=== PATIENT | female | born 1990 | race Caucasian/White ===

== ENCOUNTER 2019-11-10 14:50 | Emergency (ER) | payer OTHER, SELFPAY ==
[2019-11-10 15:05] VITALS: BP 106/55; PULSE 118; RESP 20; TEMP 39.4; O2SAT 100
--- NOTE | 2019-11-10 15:09 | ED.GENADULT ---
HPI - General Adult General Chief complaint: Fever Stated complaint: body aches/fever Time Seen by Provider: 11/10/19 15:10 Source: patient and RN notes reviewed Mode of arrival: ambulatory Limitations: no limitations History of Present Illness HPI narrative: This is a 29 years old female presents to the office for an evaluation of fever for five days. Associated with generalize bodyache with decrease appetite. 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 Denies sick contact. Related Data Home Medications Medication Instructions Recorded Confirmed No Home Medications 11/10/19 11/10/19 Allergies Allergy/AdvReac Type Severity Reaction Status Date / Time No Known Allergies Allergy Unknown Verified 11/10/19 15:52 Review of Systems Review of Systems: Narrative: CONSTITUTIONAL: Reports fever, chills and bodyache ENT: Denies congestion, sore throat, otalgia. CARDIOVASCULAR: Denies chest pain RESPIRATORY: Denies dyspnea, wheezing, cough GASTROINTESTINAL: Denies nausea, vomiting, diarrhea. Reports no appetite and generalize upset stomache GENITOURINARY: Denies urinary symptoms SKIN: Denies rash MUSCULOSKELETAL: Denies acute back pain. Reports malygia NEUROLOGIC: Denies lightheaded PMFSH Social History Social History Smoking status: Current every day smoker Comments At time of signature, I agree with nursing past medical, surgical, social and family history. There is no relevant family history pertinent to the presenting complaint. Exam Narrative: Exam Narrative: GENERAL: This is a well-nourished, well-developed patient, ill apparent, but not in acute distress. EYES: Sclera clear/white. Vision is grossly intact. EARS: External ears normal, auditory canals clear and without drainage, TMs normal without perforation. Hearing grossly intact. NOSE: External nose normal with no obvious nasal discharge, nares without redness, no rhinorrhea. THROAT: Mucous membranes moist, posterior pharynx clear. NECK: Neck supple, non-tender without lymphadenopathy, masses or thyromegaly. CARDIOVASCULAR: Regular rate and rhythm without murmurs, gallops, or rubs. RESPIRATORY: Clear to auscultation. Breath sounds equal bilaterally. No wheezes, rales, or rhonchi. GASTROINTESTINAL: Abdomen soft, non-tender, nondistended. Bowel sounds are active. No hepato-splenomegaly, or palpable masses. No guarding. SKIN: warm, intact with no suspicious lesions or rash, good texture and turgor. NEURO: awake, alert, and oriented to person, place and time. There were no obvious focal neurologic abnormalities. Steady gait [place] Coma Scale Eye Opening: Spontaneous 4 [place] Coma Scale Motor: Obeys Commands 6 [place] Coma Scale Verbal: Oriented 5 Course Vital Signs Vital signs: Vital Signs Temperature 102.9 F H 11/10/19 15:05 Pulse Rate 118 H 11/10/19 15:05 Respiratory Rate 20 11/10/19 15:05 Blood Pressure 106/55 L 11/10/19 15:05 Pulse Oximetry 100 11/10/19 15:05 Temperature 102.9 F H 11/10/19 15:05 Pulse Rate 118 H 11/10/19 15:05 Respiratory Rate 20 11/10/19 15:05 Blood Pressure 106/55 L 11/10/19 15:05 Pulse Oximetry 100 11/10/19 15:05 Medical Decision Making MDM Narrative Medical decision making narrative: Her influenza test is negative; COVID testing is ordered Discharge instructions reviewed with patient, as well as provided in writing per nursing staff. The instructions also include specific and strict return/GO TO THE ER as well as f/u information. All questions have been answered, and the patient deny any further questions with discharge and discharge plan. Differential Diagnosis Differential Diagnosis: pneumonia, Allergic Rhinitis, Upper respiratory cough syndrome, Pharyngitis, Sinusitis, Bronchitis, otitis media, viral URI, Asthma/reactive airway disease, influenza Vital Signs Vital Signs: Vital Signs Temperature 102.9 F H 11/10/19 15:05 Pulse
== END 2019-11-10 15:35 | disposition home or self-care (01) ==
PROVIDERS: Emergency Provider Nurse Practitioner; PCP Nurse Practitioner Family
DX: R50.9 Fever, unspecified (principal); F17.290 Nicotine dependence, other tobacco product, uncomplicated; Z20.828 Contact with and (suspected) exposure to other viral communicable diseases
CPT/HCPCS: 87804; 99213; G0463

== ENCOUNTER 2020-02-16 17:30 | Emergency (ER) | payer OTHER, SELFPAY ==
[2020-02-16 17:36] VITALS: BP 104/63; PULSE 84; RESP 22; TEMP 37.1; O2SAT 100
--- NOTE | 2020-02-16 18:08 | ED.SKABFB ---
HPI - Skin/Abscess/Foreign Bdy General Chief complaint: Skin/Abscess/Foreign Body Stated complaint: rash on legs and arms Time Seen by Provider: 02/16/20 18:18 Source: patient Mode of arrival: ambulatory Limitations: no limitations History of Present Illness HPI narrative: Patient was hiking last week and broke out with a rash to both of her legs 2 days ago. No shortness of breath no chest pain. Patient states is itchy rash and she has been placed seen hydrocortisone cream and IV dry to the area. MD complaint: rash Location: LLE and RLE (Both lower extremities) Severity: mild Related Data Allergies Allergy/AdvReac Type Severity Reaction Status Date / Time No Known Allergies Allergy Unknown Verified 02/16/20 18:10 Review of Systems Review of Systems: Narrative: CONSTITUTIONAL: Denies fever, chills, or sweats. EYES: Denies visual changes, redness, or discharge. ENT: Denies rhinorrhea, congestion, sore throat, or otalgia. CARDIOVASCULAR: Denies chest pain, palpitations, or edema. RESPIRATORY: Denies cough or dyspnea. GASTROINTESTINAL: Denies abdominal pain, nausea, vomiting, or diarrhea. GENITOURINARY: Denies dysuria or hematuria. SKIN: Rash to both lower extremities started 2 days ago. MUSCULOSKELETAL: Denies back pain, joint pain, or myalgia. NEUROLOGIC: Denies headache, numbness, or weakness. PSYCHIATRIC: Denies anxiety or depression. PMFSH Social History Social History Smoking status: Current every day smoker Comments At time of signature, agree with nursing past medical, surgical, social and family history. There is no relevant family history pertinent to the presenting complaint Exam Narrative: Exam Narrative: GENERAL: Well-appearing, well-nourished, and in no acute distress. HEAD: Normocephalic, atraumatic. EYES: PERRLA and EOMI. ENT: Nares clear, no rhinorrhea or epistaxis. Mucous membranes moist. NECK: Supple. CHEST: Clear to auscultation. No respiratory distress. HEART: Regular rate and rhythm. No murmur heard. Normal peripheral pulses. ABDOMEN: Soft, nontender, nondistended, normal active bowel sounds. EXTREMITIES: Normal range of motion. No edema. SKIN: Warm, dry, no rash.RASH CONSISTENT WITH RHUS DERMATITIS. LINEAR QUINTANA WITH WET LIKE APPEARS ON NEW AREAS. DIFFERENT STAGES PRESENT. REDNESS TO LESIONS. NO SIGNS OF INFECTION OR CELLULITIS/ABSCESS. NO VESICLES. NO ULCERATIONS. NO RAISED URTICARIAL LESIONS. NO LESIONS ALONG THE WAISTBAND OR IN WEB SPACES. NO BURROWS. NO PETECHIAE. To both lower extremities NEURO: No focal deficits. Alert and oriented x3. [place] Coma Scale Eye Opening: Spontaneous 4 [place] Coma Scale Motor: Obeys Commands 6 [place] Coma Scale Verbal: Oriented 5 [place] Coma Scale Total 15 Course Vital Signs Vital signs: Vital Signs Temperature 37.1 C 02/16/20 17:36 Pulse Rate 84 02/16/20 17:36 Respiratory Rate 22 H 02/16/20 17:36 Blood Pressure 104/63 02/16/20 17:36 Pulse Oximetry 100 02/16/20 17:36 Temperature 37.1 C 02/16/20 17:36 Pulse Rate 84 02/16/20 17:36 Respiratory Rate 22 H 02/16/20 17:36 Blood Pressure 104/63 02/16/20 17:36 Pulse Oximetry 100 02/16/20 17:36 MDM - Skin/Abscess/Foreign Bdy Differential Diagnosis Differential diagnosis: Likely viral exanthem, urticaria, cellulitis, eczema, impetigo and contact dermatitis Critical Care Time Critical Care Time Critical Care Time: No Discharge Plan Discharge Clinical Impression: Contact dermatitis, Poison negra dermatitis Patient Disposition: Home, Self-Care Condition: Stable Instructions: Antibiotic Form, Poison Negra (ED) Additional Instructions: Poisonivy 1. Please be aware that the oil from the plant is what causes the skin irritation, it will continue to spread as long as the oils are present. Please wash all clothing, bedding, equipment that came into contact with the plant to prevent further spreading. Animal fur
== END 2020-02-16 18:27 | disposition home or self-care (01) ==
PROVIDERS: Emergency Provider Nurse Practitioner Family
DX: L25.5 Unspecified contact dermatitis due to plants, except food (principal); F17.200 Nicotine dependence, unspecified, uncomplicated
CPT/HCPCS: 99213; G0463

== ENCOUNTER 2024-12-31 18:17 | Emergency (ER) | payer OTHER, SELFPAY ==
--- OUTSIDE RECORDS SUMMARY | 2024-12-31 18:19 | XMS_ITS | Continuity of Care Document ---
Author Organization formerly [facility] Address [address] [place] [address] Phone Care Team Providers Care Worship Director Name Role Phone Michael Cardenas MD Unavailable Unavailable Procedures Procedure Date Eye Exam, New Patient Advance Directives Directive Yes / No Effective Date File Name No Information Encounters Encounter Description Practice Location Reason(s) For Visit Diagnoses Date Provider Providers Copied on Encounter [facility], [address], [place], [place], [id number], [place] tel:[phone] [address] [place] Professional No Information 0-200 9 Theresa Rodriguez. [address] [facility] [address], [place], [place], [id number], [place]. tel:[phone] Family History Family Member Type Diagnosis Age At Onset No Information Payers Payer name Insurance type Covered alliance party ID Authorancaa umair(s) [facility] Commercial CI [id number] Social History Type Description Quantity Date Captured Comments Sex Female Smoking Status No Information Chief Complaint And Reason For Visit No Information Reason For Referral Reason For Referral No Information History Of Present Illness Encounter Date Complaint History Of Prese nt Illness No Information Functional Status Date Functional Assessmen t No Information Instructions Date Instruction Additional Infor mation No Information Assessments Type Assessment Date No Information Patient Care Teams Name Effective Dates (start - stop) Status Members No Information
--- OUTSIDE RECORDS SUMMARY | 2024-12-31 18:19 | XMS_ITS | Encounter Summary ---
Author Organization [facility] Address [address] [place] [address] Care Team Providers Care Kiln Worker Name Role Phone NicaFilibertoNeldanessa Botello NP Primary Care Provider + [phone] Encounter Details Date Type Department Care Team (Late st Contact Info) Description 12/31/2024 Patient Self-Triage [facility]/ Physicians [facility] [place] [address] Mychart, Generic Provider [address] [place] [address] Social History Tobacco Use Types Packs/Day Years Used Date Smoking Tobacco: Former Cigarettes 1.5 8 2 013 2020 Comments:Smoking History Pac ks/day: 5 Cigarettes Alcohol Use Standard Drinks/Week Comments Yes 0 (1 standard drink = 0.6 oz pur e alcohol) AUDIT-C Answer Date Recorded Q1: How often do you have a drink containing alc ohol? Monthly or less 02/16/2024 Q2: How many drinks containi ng alcohol do you have on a typical day when you are drinking? 1 or 2 02/16/2024 Frequency of Binge Drinking Not on file 01/31 Personal Safety Answer Date Recorded Have you ever been in or are you currently in a harmful physical or emotional relationship or is someone making you feel afraid or unsafe? 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
--- OUTSIDE RECORDS SUMMARY | 2024-12-31 18:19 | XMS_ITS | Encounter Summary ---
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
--- OUTSIDE RECORDS SUMMARY | 2024-12-31 18:19 | XMS_ITS | Clinical Summary ---
Author Organization [facility] [address] [facility] lto Address [address] [place] [address] Care Team Providers Care Rehabilitation Tech Name Role Phone Nelda Yousif NP Primary Care Provider [phone] Allergies No known active allergies Medications levonorgestreL (Mirena) IUD 1 each by intrauterine route once 11/01/19 19 Active clindamycin (CLEOCIN T) 1 % gel Apply to face once daily. 60 g 12/03/19 25 2025 Active triamcinolone (KENALOG) 0.025 % creamIndicatio ns:Allergic contact dermatitis of right lower eyelid,Allergi c contact dermatitis of right upper eyelid Apply topically 2 (two) times a day 30 g 12/17/19 25 Active cloNIDine ER (KAPVAY) 0.1 mg tablet extended release 12 hr Take 1 tablet (0.1 mg total) by mouth nightly 12/04/19 25 Active lamoTRIgine (LaMICtal) 100 mg tablet Take 1 tablet (100 mg total) by mouth daily 12/01/19 25 Active naproxen (NAPROSYN) 500 mg tabletIndicati ons:Low back pain, unspecified back pain laterality, unspecified chronicity, unspecified whether sciatica present Take 1 tablet (500 mg total) by mouth 2 (two) times a day as needed for pain 30 tablet 12/27/19 25 Active cyclobenzaprin e (FLEXERIL) 5 mg tabletIndicati ons:Low back pain, unspecified back pain laterality, unspecified chronicity, unspecified whether sciatica present Take 1 tablet (5 mg total) by mouth 3 (three) times a day as needed for muscle spasms 30 tablet 12/27/19 25 Active escitalopram (LEXAPRO) 10 mg tabletIndicati ons:Anxiety with Depression Take 1 tablet (10 mg total) by mouth every morning 01/30/202024 Discontinued(P atient Reported) lamoTRIgine (LaMICtal) 25 mg tabletIndicati ons:depression Take 1 tablet (25 mg total) by mouth every morning 01/16/202024 Discontinued busPIRone (BUSPAR) 15 mg tablet Take 1 tablet (15 mg total) by mouth 2 (two) times a day 07/31/192024 Discontinued(P atient Reported) oxyCODONE-acet aminophen (PERCOCET) 5-325 mg per tabletIndicati ons:Pain Take 1-2 tablets by mouth every 8 (eight) hours as needed for pain 30 tablet 02/16/202024 Discontinued(P atient Reported) docusate sodium (COLACE) 100 mg capsuleIndicat ions:constipat ion Take 1 capsule (100 mg total) by mouth 2 (two) times a day with a glass of water 30 capsule 02/16/202024 Discontinued(P atient Reported) methylPREDNISo lone (MEDROL DOSEPACK) 4 mg DosepackIndica tions:Wheezing Take 6 tabs on day 1, reduce dose by 1 daily until prescription is complete. 1 packet 05/21/202024 Discontinued(P atient Reported) benzonatate (TESSALON) 200 mg capsuleIndicat ions:Acute lower respiratory infection Take 1 capsule (200 mg total) by mouth 3 (three) times a day as needed for cough keep tessalon out of reach of children, especially children under the age of 10, due to possible serious risk such as if ingested by children under the age of 10. 30 capsule 05/21/202024 Discontinued(P atient Reported) albuterol HFA (PROVENTIL HFA,VENTOLIN HFA,PROAIR HFA) 90 mcg/actuation inhalerIndicat ions:Wheezing Inhale 2 puffs every 6 (six) hours as needed for wheezing 1 each 05/21/20 24 2024 Discontinued(P atient Reported) inhalational spacing device spacerIndicati ons:Wheezing Use with albuterol 1 each 05/21/20 24 2024 Discontinued(P atient Reported) polymyxin B-trimethoprim (POLYTRIM) ophthalmic solution Administer 1 drop into the right eye 4 (four) times a day for 5 days 10 mL 12/10/19 25 2024 Active Problems Problem Noted Date Diagnosed Date Hemorrhoids 02/14/2024 Dysplasia of cervix, high grade EMILY 2 02/20/2023 Cervical dysplasia 01/20/2023 Overview (02/20/2023): Note: Unchanged Depression 09/08/2021 Atypical squamous cells of u ndetermined significance (ASCUS) on Papanicolaou smear of cervix 06/12/2018 Overview (02/20/2023): Note: Unchanged Pilonidal cyst 04/25/2016 Overview (10/07/2016): Pilonidal cyst Herpes simplex 08/22/2013 Overview (02/20/2023): Note: type II Encounters Date Type Department Care Team Description 12/31/2024 Patient Self-Triage [facility] Physicians [address] [place] [phone] Mychart, Generic Provider 12/31/2024 Patient Self-Triage [facility] Physicians [address] [place] [phone] Mychart, Generic Provider 12/31/2024 Patient Self-Triage [facility] [address] [place] [address] Mychart, Generic Provider 12/26/2024 10:30 AM CDT E-Visit [facility] Medical Group Virtual Care [address] [place] [phone] Alicia Garza NP E-Visit for Back Pain 12/26/2024 Patient Self-Triage [facility]/ Physicians [address] [place] [address] Mychart, Generic Provider 12/25/2024 4:08 PM CDT - 12/25/2024 11:59 PM CDT Hospital Encounter [facility] [address] [place] [address] Screening for malignant neoplasm of the cervix; Cervical high risk human papillomavirus (HPV) DNA test positive; Moderate dysplasia of cervix Discharge Disposition: Discharge to home or self care 12/25/2024 2:50 PM CDT Office Visit [facility] [address] [place] [address] Caroline De Luna MD Encounter for gynecological examination without abnormal finding (Primary Dx); Screening for malignant neoplasm of the cervix; Cervical high risk human papillomavirus (HPV) DNA test positive; Moderate dysplasia of cervix; Surveillance of intrauterine contraception 12/16/2024 11:30 AM CDT Office Visit [facility] Care at [address] [place] [address] Lucy Mcmillan NP Allergic contact dermatitis of right lower eyelid (Primary Dx); Allergic contact dermatitis of right upper eyelid; Skin lesion of chest wall 12/09/2024 5:00 PM CDT Office Visit [facility] Care at [address] [place] [address] Lucy Mcmillan NP Eye redness (Primary Dx); Allergic contact dermatitis of right lower eyelid; Allergic contact dermatitis of right upper eyelid 12/02/2024 5:15 PM CDT Telemedicine [facility] Virtual Care [address] [place] [phone] Saadia Carnes NP Irritant contact dermatitis due to plants, except food (Primary Dx) 12/02/2024 Patient Self-Triage [facility] Phys[facility] [address] [place] [address] Mychart, Generic Provider 12/02/2024 Patient Self-Triage [facility] [address] [place] [phone] Mychart, Generic Provider 12/02/2024 Patient Self-Triage [facility]/ Physicians [address] [place] [address] Anushaharcinthya, Generic Provider from Last 3 Months Immunizations Immunization Administration Dates Next Due DTP 01/16/1992,1991,1991 HiB 11/12/1992 IPV 1991 Influenza, Quadrivalent, Spl it, Intramuscular 04/05/2016 Influenza, Trivalent, IM (MDV) 05/27/2014 MMR 11/12/1992 OPV 01/16/1992,1991 Tdap 10/06/2016 Tetanus toxoid, adsorbed 07/03/2011 Surgical History Surgery Date Site/Laterality Comments OTHER SURGICAL HISTORY removal of a hematoma after giving PILONIDAL CYSTECTOMY 07/03/2015 - 07/02/2016 excisional pilonidal cyst CERVICAL BIOPSY W/ LOOP ELECTRODE EXCISION 07/03/2022 - 07/02/2023 EMILY 2 with negative margins HEMORRHOID SURGERY 02/16/2024 Medical History Medical History Date Comments Hypercholesterolemia High choles terol; Comments: GDS 04/25/2016 - Psychiatric problem Abnormal Pap smear of cervix 2022 Pap - LSIL. Colpo/LEEP - EMILY 2. 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 Gender Identity Not on file Sexual Orientation Not on file Occupation Industry Job Start Date Job End Date Not on file Not on file Not on file Not on file Obstetrics History Para Term AB IAB SAB Ectopic Multiple Livin g Live Births 1 1 1 1 1 Date Outcome GA Total Labor Labor/2nd/3rd Weight Sex Type Anes PTL Tamela A1 A5 Name Clin 01/08 Term 2.466 kg (5 lb 7 oz) M Vaginal Living Last Filed Vital Signs Vital Sign Reading Time Taken Comments Blood Pressure 132/80 12/25/2024 2:58 PM CDT Pulse 80 12/16/2024 11:28 AM CDT Temperature 36.6 C (97.9 F) 12/16/2024 11:28 AM CDT Respiratory Rate 16 12/16/2024 11:28 AM CDT Oxygen Saturation 98% 12/16/2024 11:28 AM CDT Inhaled Oxygen Concentration - - Weight 88 kg (194 lb) 12/25/2024 2:58 PM CDT Height 152.4 cm (5') 12/25/2024 2:58 PM CDT Body Mass Index 37.89 12/25/2024 2:58 PM CDT Plan of Treatment Health Maintenance Due Date Last Done Comments Depression Screening 1991 Hepatitis C Screening 1991 Varicella Vaccines (1 of 2 - 13+ 2-dose series) 2004 Hepatitis B Screening 2009 Influenza Vaccine (#1) 2025 04/05/2016, 2013 Cervical Cancer Screening 12/25/20252024, 12/25/2024, 12/20/2023, Additional history exists Regular Well Visit/Exam 18-64 12/25/2025 12/25/2024, 12/20/2023 DTaP/Tdap/Td Vaccine (5 - Td or Tdap) 10/06/2026 10/06/2016, 07/03/2011, 01/16/1992, Additional history exists HPV Vaccines Aged Out No longer eligi ble based on patient's age to complete this topic Pneumococcal vaccine <65 Aged Out No longer eligible based on patient's age to complete this topic Procedures Procedure Name Priority Date/Time Associated Diagnosis Comments HIGH RISK HPV DNA DETECTION WITH GENOTYPING Routine 12/25/2024 4:08 PM CDT Screening for malignant neoplasm of the cervix Cervical high risk human papillomavirus (HPV) DNA test positive Moderate dysplasia of cervix PAP AND HIGH RISK HPV, REFLEX TO GENOTYPING Routine 12/25/2024 10:10 AM CDT Screening for malignant neoplasm of the cervix Cervical high risk human papillomavirus (HPV) DNA test positive Moderate dysplasia of cervix from Last 3 Months Results * High Risk HPV DNA Detection with Genotyping (Molecular component) (12/25/2024 4:08 PM CDT) HPV HR 16 Not Detected Not Detected [facility] Comment:Testing performed by : [facility], [address] [place] [address]., [address] HPV HR 18 Not Detected Not Detected [facility] Comment:Testing performed by : [facility], [address] [place]., [address] HPV HR Non 16/18 Not Detected Not Detected [facility] Comment: Interpretive Data Nucleic acid amplification for detection of high-risk Human Papilloma virus (HPV) is performed by the Freddie Sherman 6800 HPV test. This assay specifically detects HPV-16 and HPV-18 genotypes. The following HPV genotypes are detected as high-risk HPV: HPV-31, 33, 35, ,39, 45, 51, 52, 56, 58, 59, 66, and 68. This assay has been approved by the [place] Food and Drug Administration for detection of HPV in cervical specimens collected by a physician using an endocervical brush/spatula or cervical broom and placed in the ThinPrep Pap Test PreservCyt collection containers. The performance characteristics of this test have been verified by the [facility] Molecular Infectious Disease laboratory. Correlate with separately reported cytology results, as applicable. Interpretive data last revised 22 Testing performed by: [facility], [address] [place] [address]., [address] Endocervical 12/25/2024 4:08 PM CDT 12/26/2024 1:32 PM CDT Narrative BRANDINER - 12/26/2024 10:24 PM CDT Clinical history and diagnosis->DX Z12.4 R87.810 N87.1 2022- EMILY 2. 2023- HPV POSITIVE, NILM Testing type->Screening Last menstrual period (date if known)->12/15/24 Previous positive HPV history?->Yes Date of positive HPV->2023 Previous negative PAP?->No us Caroline De Luna MD LAB BODY FLUIDS AND S TOOLS ORDERABLES Final Result [address] Department of Laboratories [place] [id number] [facility] * Pap and High Risk HPV and Genotyping (Cytology Component) (12/25/2024 10:10 AM CDT) Thin prep (Pap test) 12/25/2024 10:10 AM CDT 12/25/2024 10:10 AM CDT Narrative PATHOLOGY - 12/30/2024 2:02 PM CDT [facility] Department of Pathology [address] [place] [id number] Final Report with Addendum Note to Patients: This report may contain a detailed description of human tissue sent by a health care provider to the laboratory for pathologic evaluation. The content of this report is essential for diagnosis and may provide important critical findings. This information may be unfamiliar to patients to review without a medical professional present. It is advised that the patient review this report in the presence of a health care provider who can answer questions and explain the details. Patient Name: ARSALAN BUITRAGO Address: [address] [place] [address]- Gender: F : 1990 (Age: 34) Service: Location: N : [id number] [facility] #: [id number] Patient Type: SPECIMEN Taken: 12/25/2024 Received: 12/25/2024 Accessioned:: 12/26/2024 Reported: 12/30/2024 Physician(s): MD Caroline Irizarry MD Diagnosis: SOURCE OF SPECIMEN SCREENING THIN PREP IMAGED PAP w/ HPV: STATEMENT OF ADEQUACY - Specimen satisfactory for interpretation; endocervical/transformation zone component absent or insufficient GENERAL CATEGORIZATION: - Negative for intraepithelial lesion or malignancy RAUL Tapia(ASCP)Chu Davis M.D. Report Electronically Reviewed and Signed Out By Chu Davis M.D. 12/30/2024 14:02:19Addenda: HPV Test Interpretation (Normal-Negative for High Risk HPV) HPV HR 16- Not detected HPV HR 18-Not detected HPV HR non 16/18- Not detected Interpretive Data Nucleic acid amplification for detection of high-risk Human Papilloma virus (HPV) is performed by the Freddie Sherman 6800 HPV test. This assay specifically detects HPV- 16 and HPV-18 genotypes. The following HPV genotypes are detected as high-risk HPV: HPV-31, 33, 35, 39, 45, 51, 52, 56, 58, 59, 66, and 68. This assay has been approved by the [place] Food and Drug Administration for detection of HPV in cervical specimens collected by a physician using an endocervical brush/spatula or cervical broom and placed in the ThinPrep Pap Test PreservCyt collection containers. The performance characteristics of this test have been verified by the [facility] Molecular Infectious Disease laboratory. Correlate with reported cytology results, as applicable. Interpretive data last revised 22 RAUL Tapia(ASCP)Report Electronically Reviewed and Signed Out By RAUL Tapia(ASCP) 12/27/2024 09:02:42 Specimen(s) Received: A: SCREENING THIN PREP IMAGED PAP w/ HPV Clinical History: Last Menstrual Period: 12/15/24 Menstrual History: Previous Negative Pap: 2023 Previous history of positive HPV: 2023 Clinical History: 2022 EMILY 2 The Pap test is a screening test used to aid in the detection of cervical cancer and its precursors. It should not be the sole means by which malignant and premalignant lesions are diagnosed. Both false negative and false positive results may occur. It also has poor sensitivity for the detection of endometrial lesions and should not be used to evaluate suspected endometrial abnormalities. For these reasons it is most important to obtain Pap tests at regular intervals. The performance characteristics of some immunohistochemical stains, fluorescence in-situ hybridization tests and immunophenotyping by flow cytometry cited in this report (if any) were determined by the Surgical Pathology Department at [facility] as part of an ongoing quality control assistant program and in compliance with federally mandated regulations drawn from the Clinical Laboratory Improvement Act of 1988 (CLIA '88). Some of these tests rely on the use of analyte specific reagents and are subject to specific labeling requirements by the US Food and Drug Administration. Such diagnostic tests may only be performed in a facility that is certified by the Department of Health and Human Services as a high complexity laboratory under CLIA '88. The FDA has determined that such clearance or approval is not necessary. This test is used for clinical purposes. It should not be regarded as investigational or for research. Nevertheless, federal rules concerning the medical use of analyte specific reagents require that the following disclaimer be attached to the report: This test was developed and its performance characteristics determined by the Surgical Pathology Department [facility]. It has not been cleared or approved by the U. S. Food and Drug Administration. Caroline De Luna MD LAB CYTOLOGY ORDERABL ES Final Result [facility] [address] [place] [address] from Last 3 Months Insurance [facility]ETNA [facility] Member Subscriber Plan / Payer (Ef fective 2024-Present) Name:Arsalan Buitrago Relation to Subscriber:Self Name:Buitrago Arsalan Reddy Payer ID:[id number] (NAIC) Type:AETNA HMO/PPO Address: [place] [phone] AET[employer] HMO/POS Member Subscriber Plan / Payer (Ef fective 2024-Present) Name:Arsalan Buitrago Relation to Subscriber:Self Name:Minna Arsalan Reddy Payer ID:[id number] (NAIC) Type:AETNA HMO/PPO Address: [place] [phone] Care Teams Rehabilitation Tech Relationship Specialty Start Date End Date Nelda Yousif NP [address] [place] [address] PCP - General Nurse Practitioner 02/28/23
--- OUTSIDE RECORDS SUMMARY | 2024-12-31 18:19 | XMS_ITS | Clinical Summary ---
Author Organization [facility] Address [address] [address] Phone Care Team Providers Care Crew Member Name Role Phone Unavailable Primary Care Provider Unavailabl e Social History Tobacco Use Types Packs/Day Years Used Date Smoking Tobacco: Never Assessed Comments Unknown Sex and Gender Information Value Date Recorded Sex Assigned at Not on file Legal Sex Female 7:46 PM CDT Gender Identity Not on file Sexual Orientation Not on file Plan of Treatment Upcoming Encounters Date Type Department Care Team (Late st Contact Info) Description 02/28/2025 10:30 AM CDT Office Visit [facility] [address] [place] [address] Sally Ruby, EXECUTIVE DIRECTOR OF MARKETING, DOWN F[address] [place] [address] Health Maintenance Due Date Last Done Comments Hepatitis C Virus (HCV) Screening 1991 TdaP Immunization 1991 Hepatitis B Immunization (1 of 3 - 19+ 3-dose series) 2010 Pap Smear 2012 Cervical Cancer Screening (CCS) 2021 HPV/Cotest 2021 SARS-COV-2 Immunization ( - season) 2024 Influenza Immunization (Seas on Ended) 2025 Respiratory Syncytial Virus (RSV) Immunization (Adult) (1 - 1-dose 75+ series) 2066 Human Papillomavirus (HPV) Immunization Aged Out No longer eligible b ased on patient's age to complete this topic Meningococcal Immunization (ACWY) Aged Out No longer eligible based on patient's age to complete this topic Pneumococcal Immunization Combined Aged Out No longer eligible based on patient's age to complete this topic Rotavirus Immunization Aged Out No lo nger eligible based on patient's age to complete this topic Insurance [employer]
--- OUTSIDE RECORDS SUMMARY | 2024-12-31 18:19 | XMS_ITS | Encounter Summary ---
Author Organization [facility] Healthcare Address [address] [place] [address] Care Team Providers Care Boiler Tender Name Role Phone NicaFilibertoNeldanessa Botello NP Primary Care Provider [phone] Encounter Details Date Type Department Care Team (Late st Contact Info) Description 12/31/2024 Patient Self-Triage [facility] HealthCare/ Physicians [facility] [place] [address] Mychart, Generic Provider [address] [place] [address] Social History Tobacco Use Types Packs/Day Years [...] on file 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
--- OUTSIDE RECORDS SUMMARY | 2024-12-31 18:19 | XMS_ITS | Referral Summary ---
Author Organization [facility] [place] [facility] Address [address] [place] [address] Care Team Providers Care Fine Arts Packer Name Role Phone Nelda Yousif NP Primary Care Provider Encounters Date Type Department Care Team Description 12/31/2024 Patient Self-Triage [facility] HealthCare/ Physicians [address] [place] [phone] Mychart, Generic Provider 12/31/2024 Patient Self-Triage [facility] ED/ Physicians [address] [place] [phone] Mychart, Generic Provider 12/31/2024 Patient Self-Triage [facility] ED/ Physicians [address] [place] [phone] Mychart, Generic Provider 12/26/2024 10:30 AM CDT E-Visit [facility] Group Virtual Care [address] [place] [phone] Alicia Garza NP E-Visit for Back Pain 12/26/2024 Patient Self-Triage [facility] HealthCare/ Physicians [address] [place] [phone] Mychart, Generic Provider 12/25/2024 4:08 PM CDT - 12/25/2024 11:59 PM CDT Hospital Encounter [address] [address] Screening for malignant neoplasm of the cervix; Cervical high risk human papillomavirus (HPV) DNA test positive; Moderate dysplasia of cervix Discharge Disposition: Discharge to home or self care 12/25/2024 2:50 PM CDT Office Visit [facility] [address] [place] [address] Caroline De Luna MD Encounter for gynecological examination without abnormal finding (Primary Dx); Screening for malignant neoplasm of the cervix; Cervical high risk human papillomavirus (HPV) DNA test positive; Moderate dysplasia of cervix; Surveillance of intrauterine contraception 12/16/2024 11:30 AM CDT Office Visit [facility] at [address] [place] [address] Lucy Mcmillan NP Allergic contact dermatitis of right lower eyelid (Primary Dx); Allergic contact dermatitis of right upper eyelid; Skin lesion of chest wall 12/09/2024 5:00 PM CDT Office Visit [facility] at [address] [place] [address] Lucy Mcmillan NP Eye redness (Primary Dx); Allergic contact dermatitis of right lower eyelid; Allergic contact dermatitis of right upper eyelid 12/02/2024 5:15 PM CDT Telemedicine [facility] Virtual [address] [phone] Saadia Carnes NP Irritant contact dermatitis due to plants, except food (Primary Dx) 12/02/2024 Patient Self-Triage [facility] ED/ Physicians [address] [place] [phone] Mychart, Generic Provider 12/02/2024 Patient Self-Triage [facility] ED/ Physicians [address] [place] [phone] Mychart, Generic Provider 12/02/2024 Patient Self-Triage [facility] ED/ Physicians [address] [place] [phone] Mychart, Generic Provider from Last 3 Months Allergies No known active allergies Medications levonorgestreL [...] (10 mg total) by mouth every morning 01/30/20 23 2024 Discontinued(P atient Reported) lamoTRIgine (LaMICtal) 25 mg tabletIndicati ons:depression Take 1 tablet (25 mg total) by mouth every morning 01/16/20 23 2024 Discontinued busPIRone (BUSPAR) 15 mg tablet Take 1 tablet (15 mg total) by mouth 2 (two) times a day 07/31/19 24 2024 Discontinued(P atient Reported) oxyCODONE-acet aminophen (PERCOCET) 5-325 mg per tabletIndicati ons:Pain Take 1-2 tablets by mouth every 8 (eight) hours as needed for pain 30 tablet 02/16/20 24 2024 Discontinued(P atient Reported) docusate sodium (COLACE) 100 mg capsuleIndicat ions:constipat ion Take 1 capsule (100 mg total) by mouth 2 (two) times a day with a glass of water 30 capsule 02/16/20 24 2024 Discontinued(P atient Reported) methylPREDNISo lone (MEDROL DOSEPACK) 4 mg DosepackIndica tions:Wheezing Take 6 tabs on day 1, reduce dose by 1 daily until prescription is complete. 1 packet 05/21/20 24 2024 Discontinued(P atient Reported) benzonatate (TESSALON) 200 mg capsuleIndicat ions:Acute lower respiratory infection Take 1 capsule (200 mg total) by mouth 3 (three) times a day as needed for cough keep tessalon out of reach of children, especially children under the age of 10, due to possible serious risk such as if ingested by children under the age of 10. 30 capsule 05/21/20 24 2024 Discontinued(P atient Reported) albuterol HFA (PROVENTIL HFA,VENTOLIN [...] simplex 08/22/2013 Overview (02/20/2023): Note: type II Immunizations Immunization Administration Dates Next Due DTP 01/16/1992,1991,1991 HiB 11/12/1992 IPV 1991 Influenza, Quadrivalent, Spl it, Intramuscular 04/05/2016 Influenza, Trivalent, IM (MDV) 05/27/2014 MMR 11/12/1992 OPV 01/16/1992,1991 Tdap 10/06/2016 Tetanus toxoid, adsorbed 07/03/2011 Social History Tobacco Use Types Packs/Day Years Used Date Smoking Tobacco: Former Cigarettes 1.5 8 2 013 2020 Tobacco Cessation:Counseling Given: Not Answered Comments:Smoking [...] on file 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[employer] Gender Identity Not on file Sexual Orientation Not on file Occupation Industry Job Start Date Job End Date Not on file Not on file Not on file Not on file Last Filed Vital Signs Vital Sign Reading [...] 12/25/2024 2:58 PM CDT Plan of Treatment Not on file Procedures Procedure Name Priority Date/Time Associated Diagnosis [...] HPV HR 16 Not Detected Not Detected [facility] Comment:Testing performed by : [facility], [address] [place]., [address] HPV HR 18 Not Detected Not Detected [facility] Comment:Testing performed by : [facility], [address] [place]., [address] HPV HR Non 16/18 Not Detected Not [...] this test have been verified by the [facility] Molecular Infectious Disease laboratory. Correlate with separately reported cytology results, as applicable. Interpretive data last revised 22 Testing performed by: [facility], [address] [place]., [address] Endocervical 12/25/2024 4:08 PM CDT 12/26/2024 1:32 PM CDT Narrative [facility] - 12/26/2024 10:24 PM CDT Clinical history and diagnosis->DX Z12.4 R87.810 N87.1 2022- EMILY 2. 2023- HPV POSITIVE, NILM Testing type->Screening Last menstrual period (date if known)->12/15/24 Previous positive HPV history?->Yes Date of positive HPV->2023 Previous negative PAP?->No us Caroline De Luna MD LAB BODY FLUIDS AND S TOOLS ORDERABLES Final Result [address] Department of Laboratories [place], [place] [id number] [facility] * Pap and High Risk HPV and Genotyping (Cytology Component) (12/25/2024 10:10 AM CDT) Thin prep (Pap test) 12/25/2024 10:10 AM CDT 12/25/2024 10:10 AM CDT Narrative PATHOLOGY - 12/30/2024 2:02 PM CDT [facility] Department of Pathology [address] [place] [id number] Final Report with Addendum Note to [...] questions and explain the details. Patient Name: SARA BUITRAGO Address: [address] [place] [address]- Gender: F : 1990 (Age: 34) Service: Location: [facility] #: [id number] Patient Type: SPECIMEN Taken: 12/25/2024 Received: 12/25/2024 [...] this test have been verified by the [facility] Molecular Infectious Disease laboratory. Correlate with reported cytology results, as applicable. Interpretive data last revised 22 RAUL Tapia(ASCP)Report Electronically Reviewed and Signed Out By CLEMENTE TapiaASCP) 12/27/2024 09:02:42 Specimen(s) Received: A: SCREENING THIN [...] determined by the Surgical Pathology Department at [facility] as part of an ongoing quality systems specialist program and in compliance with federally mandated [...] determined by the Surgical Pathology Department [facility]. It has not been cleared or approved by the U. S. Food and Drug Administration. Caroline De Luna MD LAB CYTOLOGY ORDERABL ES Final Result PATHOLOGY [address] [place] [address] from Last 3 Months Insurance [facility] AETNA COVENTRY HMO/POS AETNA COVENTRY HMO/POS Care Teams Fine Arts Packer Relationship Specialty Start Date End Date Nelda Yousif NP [address] [place] [address] PCP - General Nurse Practitioner 02/28/23
--- OUTSIDE RECORDS SUMMARY | 2024-12-31 18:22 | XMS_ITS | Continuity of Care Document ---
Author Organization [facility] Address [address] [place] [address] Phone Care Team Providers Care Automation Qa Analyst Name Role Phone Michael Cardenas MD Unavailable Unavailable Procedures Procedure Date Eye Exam, New Patient Advance Directives Directive Yes / No Effective Date File Name No Information Encounters Encounter Description Practice Location Reason(s) For Visit Diagnoses Date Provider Providers Copied on Encounter [facility], [address], [place], [place], [id number], [place] tel:[phone] [place] No Information 0-200 9 Theresa Rodriguez. [address], [place], [place], [id number], [place]. tel:[phone] Family History Family Member Type Diagnosis Age At Onset No Information Payers Payer name Insurance type Covered green party ID Authorancaa umair(s) [facility] Commercial CI [id number] Social History Type Description Quantity Date Captured [...]
[2024-12-31 18:38] VITALS: BP 116/70; PULSE 110; RESP 18; TEMP 36.8; O2SAT 99
--- NOTE | 2024-12-31 19:19 | ED_ITS ---
HPI - General Ped General Chief complaint: Fever Stated complaint: Fever Source: patient Mode of arrival: ambulatory Limitations: no limitations Nursing Documentation: reviewed/agree History of Present Illness HPI narrative: Patient presents for evaluation of fever. Symptom onset this morning. T-max at home 103.0 F. She denies any chills, nausea, vomiting, diarrhea, cough, shortness of breath. No recent sick contacts to her knowledge. She came in today for an influenza test. She declines any other testing. She does vape in use marijuana. Related Data Home Medications ?Medication ?Instructions ?Recorded ?Confirmed ?Last Taken ?Type clonidine HCl 0.1 mg mg PO 12/31/24 Unknown History tablet,extended release,12 hr desvenlafaxine succinate 50 mg mg PO 12/31/24 Unknown History tablet,extended release 24 hr lamotrigine 100 mg tablet mg 12/31/24 Unknown History Allergies Allergy/AdvReac Type Severity Reaction Status Date / Time No Known Allergies Allergy Unknown Verified 12/31/24 18:33 Pediatric Review of Systems Review of Systems: CONSTITUTIONAL: Reports fever. Denies chills, or sweats. EYES: Denies visual changes, redness, or discharge. ENT: Denies rhinorrhea, congestion, sore throat, or otalgia. CARDIOVASCULAR: Denies chest pain, palpitations, or edema. RESPIRATORY: Denies cough or dyspnea. GASTROINTESTINAL: Denies abdominal pain, nausea, vomiting, or diarrhea. GENITOURINARY: Denies dysuria or hematuria. SKIN: Denies rash or itching. MUSCULOSKELETAL: Denies back pain, joint pain, or myalgia. NEUROLOGIC: Denies headache, numbness, dizziness, or weakness. PSYCHIATRIC: Denies anxiety or depression. [facility] Past Medical History Medical History History of bipolar disorder Surgical History Surgical History H/O LEEP Family History Family History Mother Family history non-contributory Social History Social History Smoking status: Current every day smoker Tobacco type: e-cigarettes/vaping Substance use: current Substance use type: marijuana Gender identity (if verbalized by the patient): Female Spiritual care concerns: No Pediatric Exam Narrative: Physical exam: GENERAL: Well-appearing, well-nourished, and in no acute distress. HEAD: Normocephalic, atraumatic. EYES: PERRLA and EOMI. ENT: Nares clear, no rhinorrhea or epistaxis. Mucous membranes moist. Oropharynx without tonsillar hypertrophy exudate or other lesions. Bilateral TMs pearly hagen nonbulging NECK: Supple. No adenopathy or masses. No carotid bruits or JVD CHEST: Clear to auscultation. No respiratory distress. No wheezes rales or rhonchi HEART: Regular rate and rhythm. No murmur heard. Normal peripheral pulses. ABDOMEN: Soft, nontender, nondistended, normal active bowel sounds. EXTREMITIES: Normal range of motion. No edema. SKIN: Warm, dry, no rash. NEURO: No focal deficits. Alert and oriented x3. PSYCH: Normal mood and affect. Course Course Emergency Course: This is a 34-year-old female who presented for evaluation of a fever. She declined any testing other than influenza, which was negative. She requested discharge orders home. Recommend alternating Tylenol ibuprofen. If she continues to have fevers she should return or if has worsening symptoms she should go to the emergency department. She should follow-up with her primary care provider otherwise. Patient in agreement with plan of care. Level of Care: Express Care Visit Vital Signs Vital signs: Vital Signs Temperature 36.8 C 12/31/24 18:38 Pulse Rate 110 H 12/31/24 18:38 Respiratory Rate 18 12/31/24 18:38 Blood Pressure 116/70 12/31/24 18:38 Pulse Oximetry 99 12/31/24 18:38 Oxygen Delivery Room Air 12/31/24 18:38 Temperature 36.8 C 12/31/24 18:38 Pulse Rate 110 H 12/31/24 18:38 Respiratory Rate 18 12/31/24 18:38 Blood Pressure 116/70 12/31/24 18:38 Pulse Oximetry 99 12/31/24 18:38 Oxygen Delivery Room Air 12/31/24 18:38 Medical Decision Making Vital Signs Vital Signs: Vital Signs Temperature 36.8 C 12/31/24 18:38 Pulse Rate 110 H 12/31/24 18:38 Respiratory Rate 18 12/31/24 18:38 Blood Pressure 116/70 12/31/24 18:38 Pulse Oximetry 99 12/31/24 18:38 Oxygen Delivery Room Air 12/31/24 18:38 Temperature 36.8 C 12/31/24 18:38 Pulse Rate 110 H 12/31/24 18:38 Respiratory Rate 18 12/31/24 18:38 Blood Pressure 116/70 12/31/24 18:38 Pulse Oximetry 99 12/31/24 18:38 Oxygen Delivery Room Air 12/31/24 18:38 Lab Data Labs: Lab Results 12/31/24 Range/Units 19:32 POC Influenza A Ag Negative (Negative) POC Influenza B Ag Negative (Negative) Discharge Plan Discharge Clinical Impression: Viral illness Patient Disposition: Home Condition: Stable Instructions: Antibiotic Form, Viral Syndrome (ED) Patient Language: Chilean Prescriptions: No Action lamotrigine 100 mg tablet desvenlafaxine succinate 50 mg tablet extended release 24 hr PO clonidine HCl 0.1 mg tablet extended release 12 hr PO Follow-up/Referrals: En Ochoa MD [Physician] - Stand Alone Forms: Work/School Release IP Time of Disposition: 19:35
[2024-12-31 19:34] LABS: EDINFLUASCREEN Negative (Negative); EDINFLUBSCREEN Negative (Negative)
== END 2024-12-31 19:38 | disposition home or self-care (01) ==
PROVIDERS: Emergency Provider Nurse Practitioner
DX: B34.9 Viral infection, unspecified (principal); F17.290 Nicotine dependence, other tobacco product, uncomplicated; F12.90 Cannabis use, unspecified, uncomplicated
CPT/HCPCS: 87804; 99212; G0463